=== PATIENT | female | born 2000 | race Two or more races ===

== ENCOUNTER 2022-12-31 22:22 | Emergency (ER) | payer OTHER ==
[~2022-12-31] VITALS: Ht 167.6 cm; Wt 59.0 kg
[2022-12-31] MEDS ORDERED: ACETAMINOPHEN 500 MG TAB PO ONE (23:30)
[2023-01-01 06:10] VITALS: BP 106/61
[2023-01-01] MEDS ORDERED: CEPH250C PO (06:34)
[2023-01-01] MEDS ORDERED: PERCOT PO (06:34)
[2023-01-01] MEDS ORDERED: ZOFR4T PO (06:34)
== END 2023-01-01 06:47 | disposition home or self-care (01) ==
LOC: ER 22:22
DX: S66.911A Strain of unspecified muscle, fascia and tendon at wrist and hand level, right hand, initial encounter (principal); R51.9 Headache, unspecified; M54.2 Cervicalgia; V89.2XXA Person injured in unspecified motor-vehicle accident, traffic, initial encounter; Y93.89 Activity, other specified; Y92.89 Other specified places as the place of occurrence of the external cause; Y99.8 Other external cause status
CPT/HCPCS: 70450; 71250; 72125; 73130; 74176